=== PATIENT | male | born 1980 | race Caucasian/White ===

== ENCOUNTER 2016-10-12 11:47 | Emergency (ER) | payer OTHER ==
[~2016-10-12 11:47] MED LIST: CIPRO PO; DICLOFENAC; FLEXERIL10 MG; NO MEDICATIONS; VOLTAREN75 MG PO
[2016-10-14 07:10] LABS: CHLAMYDIA TRACH Not Detected (Not Detected); N GONOR Not Detected (Not Detected)
== END 2016-10-12 12:49 | disposition home or self-care (01) ==
LOC: SED 11:47
PROVIDERS: Physician Assistant Medical
DX: Z20.2 Contact with and (suspected) exposure to infections with a predominantly sexual mode of transmission (principal)
CPT/HCPCS: 87491; 87591; 99283